=== PATIENT | male | born 1950 | race Caucasian/White ===

== ENCOUNTER 2020-08-13 04:27 | Day surgery (SDC) | payer OTHER, BC ==
[2020-08-12 11:17] VITALS: BMI 27.3
--- NOTE | 2020-08-12 23:34 | PROC ---
Procedure Note Procedure: Pre procedure Diagnosis: Lumbar Radiculopathy Post Procedure Diagnosis: same Anesthesia: Local Procedure Performed: Left L4 and L5 Transforaminal Epidural Steroid Injection The patients blood pressure was elevated. Pt was asymptomatic. Pt missed his scheduled morning dose. The procedure was aborted. Pt instructed to take his medication BRIGITTE. The patient was given a follow up appointment with me in the near future. Moisés Fields DO
--- OUTSIDE RECORDS SUMMARY | 2020-08-13 04:30 | XMS ---
:1950 Author Organization [facility] Care Team Providers Name Role Phone Moisés Fields Unavailable Moisés Fields Unavailable Re-disclosure Warning The records that you are about to access may contain information from federally- assisted alcohol or drug abuse programs. If such information is present, then the following federally mandated warning applies: This information has been disclosed to you from records protected by federal confidentiality rules (42 CFR part 2). The federal rules prohibit you from making any further disclosure of this information unless further disclosure is expressly permitted by the written consent of the person to whom it pertains or as otherwise permitted by 42 CFR part 2. A general authorization for the release of medical or other information is NOT sufficient for this purpose. The Federal rules restrict any use of the information to criminally investigate or prosecute any alcohol or drug abuse patient.The records that you are about to access may contain highly sensitive health information, the redisclosure of which is protected by Article 27-F of the [facility] Public Health law. If you continue you may haveaccess to information: Regarding HIV / AIDS; Provided by facilities licensed or operated by the [facility] Office of Mental Health; or Provided by the [facility] Office for People With Developmental Disabilities. If such information is present, then the following [facility] mandated warning applies: This information has been disclosed to you from confidential records which are protected by state law. State law prohibits you from making any further disclosure of this information without the specific written consent of the person to whom it pertains, or as otherwise permitted by law. Any unauthorized further disclosure in violation of state law may result in a fine or fpc sentence or both. A general authorization for the release of medical or other information is NOT sufficient authorization for further disclosure. Encounters Encounter Providers Location Date Indications Data Source(s ) Attender: Moisés 08/04/2020 [facility] ([facility] 12:00:00 AM EDT [facility] Solano) Office Attender: Moisés Fields 07/06/2020 12:00:00 AM EDT [facility] ([facility] ) Office Insurance Providers Payer name Policy type Policy ID Covered Covered libertarian's Policy P yohannes / Coverage libertarian ID relationship to Johansen Inf ormation type johansen BC PPO [id number] SP [id number] MEDICARE [id number] SP [id number] [place] MED[place] [id number] 1 [id number] PART B DOWNSTATE EMPIRE PLAN [id number] ([facility]) [place] MEDICARE [id number] 1 [id number] PART B DOWNSTATE Problems, Conditions, and Diagnoses Code Display Name Description Problem Type Effective Dates Data Source(s) M54.16 Radiculopathy, RADICULOPATHY, Problem 07/06/2020 [facility] 12:00:00 AM EDT Thomas Solano, KAR) M54.16 Radiculopathy, RADICULOPATHY, Problem 07/06/2020 [facility] ([facility] 12:00:00 AM EDT [facility] Yu) Surgeries/Procedures Procedure Description Date Indications Data Source(s) Documentation of current 08/04/2020 [facility] ([facility] 12:00:00 AM EDT [facility] Carrillo) Documentation of current 08/04/2020 [facility] ([facility]) 12:00:00 AM EDT [facility] Carrillo) Documentation of current 08/04/2020 [facility] ([facility]) 12:00:00 AM EDT [facility] Carrillo) Documentation of current 08/04/2020 [facility] ([facility]) 12:00:00 AM EDT [facility] Carrillo) Documentation of current 08/04/2020 [facility] ([facility]) 12:00:00 AM EDT [facility], ) OFFICE OUTPATIENT VISIT 08/04/2020 [facility] ([facility] 12:00:00 AM [facility], ) Documentation of current 07/06/2020 [facility] ([facility]procedure) 12:00:00 AM EDT [facility], ) Documentation of current 07/06/2020 [facility] ([facility]) 12:00:00 AM EDT [facility], ) Documentation of current 07/06/2020 [facility] ([facility]) 12:00:00 AM EDT [facility], ) OFFICE OUTPATIENT NEW 07/06/2020 [facility] ([facility] 12:00:00 AM T [facility], ) Documentation of current 07/06/2020 [facility] ([facility]procedure) 12:00:00 AM EDT [facility], ) Documentation of current 07/06/2020 [facility] ([facility]procedure) 12:00:00 AM EDT [facility], ) OFFICE OUTPATIENT NEW 07/06/2020 [facility] ([facility] 12:00:00 AM T [facility], ) Results ID Date Data Source [id number] 08/09/2020 12:24:00 PM EDT [facility] Name Value Range Interpretation Description Data Sup porting Code Source(s) Document(s ) SARS [facility] coronavirus 2 RNA This lab was ordered by [facility] and reported by [facility]. Procedure Social History Code Duration Value Status Description Data Source(s ) Smoking 08/05/2020 denies ETOH completed denies ETOH Denies [facility] N ([facility] 12:00:00 AM EDT Denies smoking smoking denies [facility], ) denies illicit illicit drugs drugs Smoking 08/05/2020 Unknown if ever completed Unknown if ever [facility] ([facility] 12:00:00 AM EDT smoked smoked [facility], ) Smoking 07/06/2020 denies ETOH completed denies ETOH Denies [facility] N ([facility] 12:00:00 AM EDT Denies smoking smoking denies [facility], ) denies illicit illicit drugs drugs Smoking 07/06/2020 Unknown if ever completed Unknown if ever [facility] EN ([facility] 12:00:00 AM EDT smoked [facility], ) Vital Signs ID Date Data Source UNK Name Value Range Interpretation Code Description Data Source(s) Heart rate 88 /min 88 /min [facility] ([facility] , ) Respiratory rate 15 /min 15 /min [facility] ( [facility] , ) Inhaled oxygen 98 % 98 % [facility] ([facility], ) Diastolic blood 70 mm[Hg] 70 mm[Hg] [facility] (S t pressure [facility] , ) Systolic blood 125 mm[Hg] 125 mm[Hg] [facility] ([facility] , )
[2020-08-13 07:51] VITALS: BP 164/80; PULSE 92; TEMP 96
== END 2020-08-13 09:55 | disposition home or self-care (01) ==
LOC: JASU-SURG 04:27
PROVIDERS: ATTEND Pain Medicine Pain Medicine
PROC: 3E0R33Z Introduction of Anti-inflammatory into Spinal Canal, Percutaneous Approach (ICD-10-PCS; 2020-08-13)
PROC: 3E0R3BZ Introduction of Anesthetic Agent into Spinal Canal, Percutaneous Approach (ICD-10-PCS; principal; 2020-08-13 09:00)
DX: M54.16 Radiculopathy, lumbar region (principal); M54.5 Low back pain

== ENCOUNTER 2020-08-20 05:26 | Day surgery (SDC) | payer OTHER, BC ==
--- OUTSIDE RECORDS SUMMARY | 2020-08-13 13:14 | XMS ---
:1950 Author Organization [facility] Care Team Providers Name Role [...] is protected by Article 27-F of the [facility] Public Health law. If you continue you may haveaccess to information: Regarding HIV / AIDS; Provided by facilities licensed or operated by the [facility] Office of Mental Health; or Provided by the [facility] Office for People With Developmental Disabilities. If such information is present, then the following [facility] mandated warning applies: This information has been [...] law may result in a fine or shelter sentence or both. A general authorization for [...] name Policy type Policy ID Covered Covered constitution party's Policy P yohannes / Coverage constitution party ID relationship to Johansen Inf ormation type johansen BC PPO [id number] SP [id number] MEDICARE [id number] SP [id number] [place] MEDICARE [id number] 1 [id number] PART B DOWNSTATE EMPIRE PLAN [id number] ([facility]) [place] [id number] 1 [id number] PART B DOWNSTATE Problems, [...] Carrillo) Documentation of current 08/04/2020 [facility] ([facility]) 12:00:00 AM EDT [facility] Carrillo) Documentation of current 08/04/2020 [facility] ([facility]) 12:00:00 AM EDT [facility] Carrillo) Documentation of current 08/04/2020 [facility] ([facility]procedure) 12:00:00 AM EDT [facility], ) OFFICE OUTPATIENT VISIT 08/04/2020 [facility] ([facility] 12:00:00 AM [facility], ) Documentation of current 07/06/2020 [facility] ([facility]procedure) 12:00:00 AM EDT [facility], ) Documentation of current 07/06/2020 [facility] ([facility]procedure) 12:00:00 AM EDT [facility], ) Documentation of current 07/06/2020 [facility] ([facility]) 12:00:00 AM EDT [facility], ) OFFICE OUTPATIENT NEW 07/06/2020 [facility] ([facility] 12:00:00 AM T [facility], ) Documentation of current 07/06/2020 [facility] ([facility] (procedure) 12:00:00 AM EDT [facility], ) Documentation of current 07/06/2020 [facility] ([facility]procedure) 12:00:00 AM EDT [facility], ) OFFICE OUTPATIENT NEW 07/06/2020 [facility] ([facility] 12:00:00 AM T [facility], ) Results ID Date Data Source [id number] 08/09/2020 12:24:00 PM EDT [facility] Name Value [...] 12:00:00 AM EDT Denies smoking smoking denies [facility], ) denies illicit illicit drugs drugs Smoking 08/05/2020 Unknown if ever completed Unknown if ever [facility] ([facility] 12:00:00 AM EDT smoked smoked [facility], ) Smoking 07/06/2020 denies ETOH completed denies ETOH Denies [facility] N ([facility] 12:00:00 AM EDT Denies smoking smoking denies [facility], ) denies illicit illicit drugs drugs Smoking 07/06/2020 Unknown if ever completed Unknown if ever [facility] ([facility] 12:00:00 AM EDT smoked [facility], ) Vital Signs ID Date Data Source UNK Name Value Range Interpretation Code Description Data Source(s) Heart rate 88 /min 88 /min [facility] ([facility] , ) Respiratory rate 15 /min 15 /min [facility] ( [facility] , ) Inhaled oxygen 98 % 98 % [facility] ([facility], ) Diastolic blood 70 mm[Hg] 70 mm[Hg] [facility] (S t pressure [facility] , ) Systolic blood 125 mm[Hg] 125 mm[Hg] [facility] ([facility] , )
[2020-08-19 16:08] VITALS: BMI 27.3
--- NOTE | 2020-08-19 22:04 | PROC ---
Procedure Note Procedure: Pre procedure Diagnosis: Lumbar Radiculopathy Post Procedure Diagnosis: same Anesthesia: Local Procedure Performed: Left L4 and L5 Transforaminal Epidural Steroid Injection After the risks and benefits were explained, informed consent was obtained. The patient was then taken to the procedure room and positioned prone on the procedure table. Time out was performed. The region overlying the left L4 and L5 neural foramens were identified using fluoroscopy. The skin was prepped and draped in the usual sterile fashion. The skin and soft tissues were anesthetized using 1% lidocaine. The neural foramens were identified with the fluoroscopic beam directed in a right oblique direction. 2 22 gauge 3.5 inch spinal needles were then introduced into the appropriate neural foramens using intermittent fluoroscopic guidance using AP, oblique and lateral views as indicated. Needle placement was then confirmed with the injection of Omnipaque 180. Epidural flow was noted and the nerve root was outlined. No vascular uptake was noted. Next, a mixture 1.5 cc of dexamethasone and Normal saline followed by 0.5 cc of 1% lidocaine was then injected around the left L4 and L5 spinal nerves. The patient tolerated the procedure well and there were no complications. The patient was taken to the post procedure recovery area in good condition. Vital signs remained stable before, during, and after the procedure. The patient was given oral and written follow-up instructions. The patient was given a follow up appointment with me in the near future. Moisés Fields DO
--- OUTSIDE RECORDS SUMMARY | 2020-08-20 05:32 | XMS ---
:1950 Author [facility] Care Team Providers Name Role Phone [...] is protected by Article 27-F of the [facility] Public Health law. If you continue you may haveaccess to information: Regarding HIV / AIDS; Provided by facilities licensed or operated by the [facility] Office of Mental Health; or Provided by the [facility] Office for People With Developmental Disabilities. If such information is present, then the following [facility] mandated warning applies: This information [...] law may result in a fine or assisted sentence or both. A general authorization for the release of medical or other information is NOT sufficient authorization for further disclosure. Encounters Encounter Providers Location Date Indications Data Source(s ) Attender: Moisés 08/04/2020 [facility] ([facility] 12:00:00 AM K[facility] Mendez) Office Attender: Moisés Fields 07/06/2020 12:00:00 AM EDT [facility] ([facility] ) Office Insurance Providers Payer name Policy type Policy ID Covered Covered republican's Policy P yohannes / Coverage republican ID relationship to Johansen Inf ormation type johansen BC PPO [id number] SP [id number] MEDICARE [id number] SP [id number] PPO [id number] SP [id number] [place] [id number] 1 [id number] PART B DOWNSTATE EMPIRE PLAN [id number] ([facility]) [place] MEDICARE [id number] 1 [id number] PART B DOWNSTATE Problems, Conditions, and Diagnoses Code Display Name Description Problem Type Effective Dates Data Source(s) M54.16 Radiculopathy, RADICULOPATHY, Problem 07/06/2020 [facility] ([facility] 12:00:00 AM EDT [facility], ) M54.16 Radiculopathy, RADICULOPATHY, Problem 07/06/2020 [facility] ([facility] 12:00:00 AM EDT [facility] ) Surgeries/Procedures Procedure Description Date Indications Data Source(s) Documentation of current 08/04/2020 [facility] ([facility] (procedure) 12:00:00 AM EDT [facility] Carrillo) Documentation of current 08/04/2020 [facility] ([facility] (procedure) 12:00:00 AM EDT [facility] Carrillo) Documentation of current 08/04/2020 [facility] ([facility] (procedure) 12:00:00 AM EDT K[facility] Carrillo) Documentation of current 08/04/2020 [facility] ([facility] (procedure) 12:00:00 AM EDT [facility], ) Documentation of current 08/04/2020 [facility] ([facility] (procedure) 12:00:00 AM EDT [facility], ) OFFICE OUTPATIENT VISIT 08/04/2020 [facility] ([facility] 12:00:00 AM T [facility], ) Documentation of current 07/06/2020 [facility] ([facility] (procedure) 12:00:00 AM EDT [facility], ) Documentation of current 07/06/2020 [facility] ([facility] (procedure) 12:00:00 AM EDT [facility], ) Documentation of current 07/06/2020 [facility] ([facility] (procedure) 12:00:00 AM EDT [facility], ) OFFICE OUTPATIENT NEW 07/06/2020 [facility] ([facility] 12:00:00 AM T [facility], ) Documentation of current 07/06/2020 [facility] ([facility] (procedure) 12:00:00 AM EDT [facility], ) Documentation of current 07/06/2020 [facility] ([facility] (procedure) 12:00:00 AM EDT [facility], ) OFFICE OUTPATIENT NEW 07/06/2020 [facility] ([facility] 12:00:00 AM T [facility], ) Results ID Date Data Source [id number] 08/15/2020 10:45:00 AM EDT [facility] Name Value Range Interpretation Description Data Sup porting Code Source(s) Document(s ) SARS [facility] coronavirus 2 RNA This lab was ordered by [facility] and reported by [facility]. ID Date Data Source [id number] 08/09/2020 12:24:00 PM EDT [facility] Name Value Range Interpretation Description Data Sup porting Code Source(s) Document(s ) SARS [facility] coronavirus 2 RNA This lab was ordered by [facility] and reported by [facility]. Procedure Social History Code Duration Value Status Description Data Source(s ) Smoking 08/05/2020 denies ETOH completed denies ETOH Denies [facility] N ([facility] 12:00:00 AM EDT Denies smoking smoking denies [facility], ) denies illicit illicit drugs drugs Smoking 08/05/2020 Unknown if ever completed Unknown if ever [facility] EN ([facility] 12:00:00 AM EDT smoked smoked [facility], ) Smoking 07/06/2020 denies ETOH completed denies ETOH Denies [facility] N ([facility] 12:00:00 AM EDT Denies smoking [facility], ) denies illicit illicit drugs drugs Smoking 07/06/2020 Unknown if ever completed Unknown if ever [facility] EN ([facility] 12:00:00 AM EDT smoked smoked [facility], ) Vital Signs ID Date Data Source UNK Name Value Range Interpretation Code Description Data Source(s) Heart rate 88 /min 88 /min [facility] ([facility] , ) Respiratory rate 15 /min 15 /min [facility] ( [facility]) Inhaled oxygen 98 % 98 % [facility] ([facility], ) Diastolic blood 70 mm[Hg] 70 mm[Hg] [facility] ([facility] , ) Systolic blood 125 mm[Hg] 125 mm[Hg] [facility] ([facility] , )
[2020-08-20] MEDS ORDERED: LIDOCAINE HCL 1% PRESERVATIVE FREE - 30ML VIAL IJ ONE ×2 (11:41)
[2020-08-20] MEDS ORDERED: IOHEXOL 180 MG/1 ML ML IJ ONE (11:42)
[2020-08-20 13:41] VITALS: PULSE 80; TEMP 98.2
[2020-08-20 14:08] VITALS: BP 130/70
== END 2020-08-20 12:30 | disposition home or self-care (01) ==
LOC: JASU-SURG 05:26
PROVIDERS: ATTEND Pain Medicine Pain Medicine
PROC: 3E0R33Z Introduction of Anti-inflammatory into Spinal Canal, Percutaneous Approach (ICD-10-PCS; principal; 2020-08-20 11:30)
DX: M54.16 Radiculopathy, lumbar region (principal)
CPT/HCPCS: 76000-TC-FY

== ENCOUNTER 2020-11-12 04:32 | Day surgery (SDC) | payer OTHER, BC ==
[2020-11-08 15:41] VITALS: BMI 27.3
[2020-11-12] MEDS ORDERED: DEXAMETHASONE SOD PHOSPHATE/PF 10 MG/ML SDV ONE (10:42)
[2020-11-12] MEDS ORDERED: LIDOCAINE HCL/PF 1% SDV 5ML VIAL ONE ×2 (10:42→10:53)
[2020-11-12] MEDS ORDERED: DEXAMETHASONE SOD PHOSPHATE 4 MG/1 ML VIAL ONE (10:44)
[2020-11-12] MEDS ORDERED: LIDOCAINE HCL 1% PRESERVATIVE FREE - 30ML VIAL INF ONE (11:20)
[2020-11-12] MEDS ORDERED: BUPIVACAINE HCL/PF 0.75% 10 ML VIAL CAUD ONE (11:21)
[2020-11-12] MEDS ORDERED: IOHEXOL 180 MG/1 ML ML IT ONE (11:23)
[2020-11-12 11:50] VITALS: TEMP 97.5
[2020-11-12 12:19] VITALS: BP 120/60; PULSE 80
== END 2020-11-12 12:05 | disposition home or self-care (01) ==
LOC: JASU-SURG 04:32
PROVIDERS: ATTEND Pain Medicine Pain Medicine
PROC: 3E0T33Z Introduction of Anti-inflammatory into Peripheral Nerves and Plexi, Percutaneous Approach (ICD-10-PCS; 2020-11-12)
PROC: 3E0T3BZ Introduction of Anesthetic Agent into Peripheral Nerves and Plexi, Percutaneous Approach (ICD-10-PCS; principal; 2020-11-12 12:30)
DX: M47.816 Spondylosis without myelopathy or radiculopathy, lumbar region (principal)
CPT/HCPCS: 76000-TC-FY

== ENCOUNTER 2021-05-20 05:11 | Day surgery (SDC) | payer OTHER, BC ==
[2021-05-18 15:54] VITALS: BMI 27.3
[2021-05-20] MEDS ORDERED: BUPIVACAINE HCL/PF 0.75% 10 ML VIAL ONE (07:28)
[2021-05-20] MEDS ORDERED: LIDOCAINE HCL/PF 1% SDV 5ML VIAL ONE (07:28)
[2021-05-20 09:39] VITALS: PULSE 76
[2021-05-20] MEDS ORDERED: LIDOCAINE HCL 1% PRESERVATIVE FREE - 30ML VIAL IJ ONE (11:59)
[2021-05-20] MEDS ORDERED: IOHEXOL 180 MG/1 ML ML IJ ONE (12:02)
[2021-05-20] MEDS ORDERED: BUPIVACAINE HCL/PF 0.75% 10 ML VIAL NR ONE (12:04)
[2021-05-20 13:19] VITALS: BP 135/78; TEMP 98
== END 2021-05-20 12:40 | disposition home or self-care (01) ==
LOC: JASU-SURG 05:11
PROVIDERS: ATTEND Pain Medicine Pain Medicine
PROC: BR16YZZ Fluoroscopy of Lumbar Facet Joint(s) using Other Contrast (ICD-10-PCS; 2021-05-20)
PROC: 3E0T3BZ Introduction of Anesthetic Agent into Peripheral Nerves and Plexi, Percutaneous Approach (ICD-10-PCS; principal; 2021-05-20 11:00)
DX: M47.816 Spondylosis without myelopathy or radiculopathy, lumbar region (principal)
CPT/HCPCS: 76000-TC-FY

== ENCOUNTER 2021-06-24 04:27 | Day surgery (SDC) | payer OTHER, BC ==
[2021-06-23 14:29] VITALS: BMI 27.3
[2021-06-24] MEDS ORDERED: BUPIVACAINE HCL/PF 0.75% 10 ML VIAL ONE (07:31)
[2021-06-24] MEDS ORDERED: LIDOCAINE HCL/PF 1% SDV 5ML VIAL ONE (07:31)
[2021-06-24] MEDS ORDERED: DEXAMETHASONE SOD PHOSPHATE 10 MG/1 ML VIAL ONE (07:53)
[2021-06-24] MEDS ORDERED: LIDOCAINE HCL/PF 2% SDV 5ML VIAL INF ONE ×2 (11:37)
[2021-06-24] MEDS ORDERED: LIDOCAINE 1% P/F 10 MG/ML VIAL INF ONE ×2 (11:38)
[2021-06-24] MEDS ORDERED: BUPIVACAINE HCL/PF 0.75% 10 ML VIAL NR ONE ×2 (11:39)
[2021-06-24] MEDS ORDERED: IOHEXOL 180 MG/1 ML ML IJ ONE (11:39)
[2021-06-24] MEDS ORDERED: DEXAMETHASONE SOD PHOSPHATE 10 MG/1 ML VIAL IVPUSH ONE (11:40)
[2021-06-24 12:17] VITALS: BP 134/78; PULSE 80; TEMP 98.4
== END 2021-06-24 12:18 | disposition home or self-care (01) ==
LOC: JASU-SURG 04:27
PROVIDERS: ATTEND Pain Medicine Pain Medicine
PROC: 3E0T3TZ Introduction of Destructive Agent into Peripheral Nerves and Plexi, Percutaneous Approach (ICD-10-PCS; principal; 2021-06-24 11:15)
PROC: BR16YZZ Fluoroscopy of Lumbar Facet Joint(s) using Other Contrast (ICD-10-PCS; 2021-06-24 11:15)
DX: M47.816 Spondylosis without myelopathy or radiculopathy, lumbar region (principal)
CPT/HCPCS: 76000-TC-FY; J1100

== ENCOUNTER 2021-07-19 04:40 | Day surgery (SDC) | payer OTHER, BC ==
[2021-07-14 09:18] VITALS: BMI 27.3
[2021-07-19] MEDS ORDERED: DEXAMETHASONE SOD PHOSPHATE 10 MG/1 ML VIAL ONE (09:35)
[2021-07-19] MEDS ORDERED: BUPIVACAINE HCL/PF 0.75% 10 ML VIAL ONE (09:35)
[2021-07-19] MEDS ORDERED: LIDOCAINE HCL/PF 1% SDV 5ML VIAL ONE (09:35)
[2021-07-19] MEDS ORDERED: LIDOCAINE HCL/PF 2% SDV 5ML VIAL ONE (10:31)
[2021-07-19] MEDS ORDERED: LIDOCAINE HCL 1% PRESERVATIVE FREE - 30ML VIAL IJ ONE (11:13)
[2021-07-19] MEDS ORDERED: DEXAMETHASONE SOD PHOSPHATE 10 MG/1 ML VIAL IM ONE (11:13)
[2021-07-19] MEDS ORDERED: LIDOCAINE HCL/PF 2% SDV 5ML VIAL INF ONE (11:13)
[2021-07-19] MEDS ORDERED: IOHEXOL 180 MG/1 ML ML IJ ONE (11:13)
[2021-07-19] MEDS ORDERED: BUPIVACAINE HCL/PF 0.75% 10 ML VIAL NR ONE (11:13)
[2021-07-19 12:04] VITALS: BP 165/81; PULSE 77; TEMP 98.6
== END 2021-07-19 13:31 | disposition home or self-care (01) ==
LOC: JASU-SURG 04:40
PROVIDERS: ATTEND Pain Medicine Pain Medicine
PROC: 3E0T3TZ Introduction of Destructive Agent into Peripheral Nerves and Plexi, Percutaneous Approach (ICD-10-PCS; principal; 2021-07-19 09:30)
DX: M47.816 Spondylosis without myelopathy or radiculopathy, lumbar region (principal)
CPT/HCPCS: 76000-TC-FY; J1100

== ENCOUNTER 2021-09-18 22:58 | Emergency (ER) | payer OTHER, BC ==
[2021-09-18 23:02] VITALS: BP 171/78; TEMP 100; BMI 26.6
[2021-09-19] MEDS ORDERED: ALPRAZolam 1 MG TABLET PO PRN (00:43)
[2021-09-19] MEDS ORDERED: ACETAMINOPHEN 500 MG TABLET (FP) PO ONE (01:08)
[2021-09-19] MEDS ORDERED: ACETAMINOPHEN 325 MG TABLET (FP) ONE (01:26)
[2021-09-19] MEDS ORDERED: ALPRAZolam 0.25 MG TABLET ONE (01:26)
[2021-09-19] MEDS ORDERED: ALPRAZolam 1 MG TABLET PO ONE (01:34)
[2021-09-19 02:53] VITALS: PULSE 93
== END 2021-09-19 03:11 | disposition home or self-care (01) ==
LOC: JER 22:58
DX: J06.9 Acute upper respiratory infection, unspecified (principal)
CPT/HCPCS: 71046-TC-FY; 99284-25; C9803; U0003; U0005

== ENCOUNTER 2022-05-30 04:36 | Day surgery (SDC) | payer OTHER, BC ==
[2022-05-26 15:45] VITALS: BMI 27.3
[2022-05-30] MEDS ORDERED: LIDOCAINE HCL/PF 1% SDV 5ML VIAL ONE (07:26)
[2022-05-30] MEDS ORDERED: DEXAMETHASONE SOD PHOSPHATE 10 MG/1 ML VIAL ONE (07:26)
[2022-05-30] MEDS ORDERED: BUPIVACAINE HCL/PF 0.75% 10 ML VIAL ONE (07:26)
[2022-05-30 09:28] VITALS: RESP 20
[2022-05-30] MEDS ORDERED: LIDOCAINE HCL/PF 2% SDV 5ML VIAL ONE (11:46)
[2022-05-30] MEDS ORDERED: LIDOCAINE HCL 1% PRESERVATIVE FREE - 30ML VIAL IJ ONE (11:50)
[2022-05-30] MEDS ORDERED: LIDOCAINE HCL/PF 2% SDV 5ML VIAL PNB ONE (11:50)
[2022-05-30] MEDS ORDERED: DEXAMETHASONE SOD PHOSPHATE 10 MG/1 ML VIAL IVPUSH ONE (11:52)
[2022-05-30] MEDS ORDERED: BUPIVACAINE HCL/PF 0.75% 10 ML VIAL NR ONE (11:52)
[2022-05-30 13:31] VITALS: BP 130/80; PULSE 74; TEMP 98
== END 2022-05-30 13:20 | disposition home or self-care (01) ==
LOC: JASU-SURG 04:36
PROVIDERS: ATTEND Pain Medicine Pain Medicine
PROC: BR16YZZ Fluoroscopy of Lumbar Facet Joint(s) using Other Contrast (ICD-10-PCS; 2022-05-30)
PROC: 3E0T3TZ Introduction of Destructive Agent into Peripheral Nerves and Plexi, Percutaneous Approach (ICD-10-PCS; principal; 2022-05-30 10:15)
DX: M47.816 Spondylosis without myelopathy or radiculopathy, lumbar region (principal)
CPT/HCPCS: 76000-TC-FY; J1100

== ENCOUNTER 2022-07-04 04:18 | Day surgery (SDC) | payer OTHER, BC ==
[2022-07-03 17:55] VITALS: BMI 26.6
[2022-07-04] MEDS ORDERED: LIDOCAINE HCL/PF 1% SDV 5ML VIAL ONE (07:11)
[2022-07-04] MEDS ORDERED: BUPIVACAINE HCL/PF 0.75% 10 ML VIAL ONE (07:12)
[2022-07-04] MEDS ORDERED: LIDOCAINE HCL 1% PRESERVATIVE FREE - 30ML VIAL IJ ONE (10:32)
[2022-07-04] MEDS ORDERED: LIDOCAINE HCL/PF 2% SDV 5ML VIAL PNB ONE ×2 (10:32→10:46)
[2022-07-04] MEDS ORDERED: DEXAMETHASONE SOD PHOSPHATE 10 MG/1 ML VIAL IVPUSH ONE (10:33)
[2022-07-04] MEDS ORDERED: BUPIVACAINE HCL/PF 0.75% 10 ML VIAL NR ONE (10:34)
[2022-07-04 13:34] VITALS: BP 135/74; PULSE 74; RESP 18; TEMP 98.9
== END 2022-07-04 11:40 | disposition home or self-care (01) ==
LOC: JASU-SURG 04:18
PROVIDERS: ATTEND Pain Medicine Pain Medicine
PROC: 3E0T3TZ Introduction of Destructive Agent into Peripheral Nerves and Plexi, Percutaneous Approach (ICD-10-PCS; principal; 2022-07-04 10:00)
DX: M47.816 Spondylosis without myelopathy or radiculopathy, lumbar region (principal)
CPT/HCPCS: 76000-TC-FY; J1100

== ENCOUNTER 2023-10-09 04:10 | Day surgery (SDC) | payer OTHER, BC ==
[2023-10-05 17:20] VITALS: BMI 26.6
[2023-10-09] MEDS ORDERED: ACETAMINOPHEN 500 MG TABLET (FP) PO PRN (09:09)
[2023-10-09] MEDS ORDERED: LIDOCAINE 1% P/F 10 MG/ML VIAL INF ONE (12:14)
[2023-10-09] MEDS ORDERED: IOHEXOL 180 MG/1 ML ML IJ ONE (12:17)
[2023-10-09] MEDS ORDERED: DEXAMETHASONE SOD PHOSPHATE 10 MG/1 ML VIAL IVPUSH ONE (12:18)
[2023-10-09 12:40] VITALS: RESP 20
[2023-10-09 13:32] VITALS: BP 135/75; PULSE 78; TEMP 97.9
== END 2023-10-09 13:20 | disposition home or self-care (01) ==
LOC: JASU-SURG 04:10
PROVIDERS: ATTEND Pain Medicine Pain Medicine
PROC: 3E0R3BZ Introduction of Anesthetic Agent into Spinal Canal, Percutaneous Approach (ICD-10-PCS; 2023-10-09)
PROC: 3E0R33Z Introduction of Anti-inflammatory into Spinal Canal, Percutaneous Approach (ICD-10-PCS; principal; 2023-10-09 11:45)
DX: M54.16 Radiculopathy, lumbar region (principal)
CPT/HCPCS: 76000-TC-FY; J1100

== ENCOUNTER 2024-02-09 02:44 | Inpatient (IN) | payer OTHER, BC ==
[2024-02-09 02:51] VITALS: BMI 25.9
[2024-02-09] MEDS ORDERED: ACETAMINOPHEN INJECTION 100 ML IVPB ONE (03:43)
[2024-02-09] MEDS: ACETAMINOPHEN 1000 MG/100 ML BAG IVPB ONE (04:04)
[2024-02-09 04:15] LABS: BASO % 0.6 % (0-2.0); HEMATOCRIT 35.4 % (35.4-49); HEMOGLOBIN 11.8 GM/dL (11.7-16.9); MCH 27.9 pg (25.7-33.7); MCHC 33.3 g/dl (32.0-35.9); MEAN CELL VOLUME 83.7 fl (80-96); MEAN PLT VOLUME 6.8 fl (7.5-11.1); MONO % 6.9 % (3.8-10.2); NEUT % 80.5 % (42.8-82.8); PLATELET COUNT 252 10^3/uL (134-434); RBC 4.23 M/mm3 (4.00-5.60); RDW 14.9 % (11.9-15.9); WHITE BLOOD COUNT 9.2 K/mm3 (4.0-10.0)
[2024-02-09 04:43] LABS: POTASSIUM 4.6 mmol/L (3.5-5.1)
[2024-02-09 04:45] LABS: CALCIUM 9.6 mg/dL (8.5-10.1)
[2024-02-09 04:46] LABS: ALBUMIN 3.6 g/dl (3.4-5.0)
[2024-02-09 04:50] LABS: BILIRUBIN,TOTAL 0.3 mg/dL (0.2-1); TOT PROT 7.1 g/dl (6.4-8.2)
[2024-02-09 07:46] LABS: EPI CELLS 4 /uL (0-25.1); HYALINE CASTS 0 /uL (0-3.1); URINE APPEARANCE CLEAR; URINE BACTERIA 4 /uL (0-1359); URINE BILIRUBIN NEGATIVE (NEGATIVE); URINE COLOR YELLOW; URINE GLUCOSE (UA) 3+ (NEGATIVE); URINE KETONE NEGATIVE (NEGATIVE); URINE LEUK ESTERASE NEGATIVE (NEGATIVE); URINE NITRITE NEGATIVE (NEGATIVE); URINE PROTEIN 1+ (NEGATIVE); URINE RBC 13 /uL (0-23.9); URINE UROBILINOGEN 0.2 mg/dL (0.2-1.0); URINE WBC 2 /uL (0-25.8)
[2024-02-09] MEDS ORDERED: PIPERACILLIN/TAZOB 4.5 GM 4.5 GM/100 ML BAG IVPB ONE (09:32)
[2024-02-09] MEDS: PIPERACILLIN/TAZOB 4.5 GM 4.5 GM in DEXTROSE 5%-WATER 100 ML IVPB ONE (09:51)
[2024-02-09] MEDS ORDERED: IOHEXOL (OMNIPAQUE PO) 12 MG/ML - 500 ML BOTTLE PO ONE (10:56)
[2024-02-09 12:42] LABS: INR 1.23 (0.83-1.09); PROTHROMBIN TIME (PATIENT) 14.2 SEC (9.7-13.0)
[2024-02-09 12:45] LABS: ACTIVATED PTT 34.3 SECONDS (25.2-36.5)
[2024-02-09] MEDS ORDERED: ONDANSETRON 4 MG/2 ML VIAL IVPUSH PRN (14:56)
[2024-02-09] MEDS ORDERED: PIPERACILLIN/TAZOB 3.375 GM 3.375 GM in DEXTROSE 5%-WATER - 50 ML IVPB SCH (15:00)
[2024-02-09] MEDS: ACETAMINOPHEN 1000 MG/100 ML BAG IVPB PRN (16:45)
[2024-02-09] MEDS: DEXTROSE 5%-0.45% SALINE 1,000 ML IV SCH (16:45)
[2024-02-09] MEDS: INSULIN ASPART SLIDING SCALE (NOVOLOG) 1 VIAL SQ SCH (16:45)
[2024-02-09] MEDS: amLODIPine BESYLATE 5 MG TABLET (FP) PO SCH (16:46)
[2024-02-09] MEDS: PANTOPRAZOLE SODIUM 40 MG VIAL IVPUSH SCH (16:46)
[2024-02-09] MEDS: PIPERACILLIN/TAZOB 3.375 GM 3.375 GM in DEXTROSE 5%-WATER - 50 ML IVPB SCH (17:03)
[2024-02-09] MEDS: NEBIVOLOL 10 MG TABLET (FP) PO SCH (17:22)
[2024-02-09] MEDS: TAMSULOSIN HCL 0.4 MG CAP PO SCH (22:26)
[2024-02-09] MEDS: ROSUVASTATIN CA 20 MG TABLET PO SCH (22:27)
[2024-02-10 08:56] LABS: BASO % 0.3 % (0-2.0); EOS % 1.7 % (0-4.5); HEMOGLOBIN 10.9 GM/dL (11.7-16.9); LYMPH % 13.6 % (8-40); MCH 27.1 pg (25.7-33.7); MCHC 32.2 g/dl (32.0-35.9); MEAN CELL VOLUME 84.1 fl (80-96); MEAN PLT VOLUME 6.9 fl (7.5-11.1); NEUT % 77.4 % (42.8-82.8); PLATELET COUNT 264 10^3/uL (134-434); RBC 4.04 M/mm3 (4.00-5.60); RDW 14.5 % (11.9-15.9); WHITE BLOOD COUNT 6.9 K/mm3 (4.0-10.0)
[2024-02-10 09:13] LABS: POTASSIUM 4.4 mmol/L (3.5-5.1)
[2024-02-10 09:21] LABS: CALCIUM 8.9 mg/dL (8.5-10.1)
[2024-02-10 09:22] LABS: BLOOD UREA NITROGEN 14.6 mg/dL (7-18)
[2024-02-10 09:25] LABS: CREATININE 0.9 mg/dL (0.55-1.3)
[2024-02-10 09:26] LABS: BILIRUBIN,TOTAL 0.5 mg/dL (0.2-1); TOT PROT 6.4 g/dl (6.4-8.2)
[2024-02-10] MEDS: ENOXAPARIN NA (PORCINE) 40 MG/0.4 ML DISP.SYRIN SQ SCH (09:34)
[2024-02-10] MEDS: KETOROLAC TROMETHAMINE 30 MG/1 ML VIAL IVPUSH PRN (11:49)
[2024-02-11 08:30] LABS: BASO % 0.5 % (0-2.0); EOS % 2.6 % (0-4.5); HEMATOCRIT 33.5 % (35.4-49); HEMOGLOBIN 10.9 GM/dL (11.7-16.9); LYMPH % 17.8 % (8-40); MCH 27.3 pg (25.7-33.7); MCHC 32.6 g/dl (32.0-35.9); MEAN CELL VOLUME 83.7 fl (80-96); MEAN PLT VOLUME 6.6 fl (7.5-11.1); MONO % 6.6 % (3.8-10.2); NEUT % 72.5 % (42.8-82.8); PLATELET COUNT 258 10^3/uL (134-434); RDW 14.4 % (11.9-15.9); WHITE BLOOD COUNT 5.6 K/mm3 (4.0-10.0)
[2024-02-11 09:16] LABS: BILIRUBIN,TOTAL 0.3 mg/dL (0.2-1); BLOOD UREA NITROGEN 21.1 mg/dL (7-18); CALCIUM 8.9 mg/dL (8.5-10.1); CREATININE 0.9 mg/dL (0.55-1.3); POTASSIUM 4.3 mmol/L (3.5-5.1); TOT PROT 6.3 g/dl (6.4-8.2)
[2024-02-11] MEDS: DEXTROSE 5%-0.45% SALINE 1,000 ML IV SCH (13:53)
[2024-02-11] MEDS: CEFTRIAXONE 1 GM in DEXTROSE 5%-WATER - 50 ML IVPB SCH ×2 (16:56)
[2024-02-12 06:20] VITALS: PULSE 79
[2024-02-12 08:39] LABS: HEMATOCRIT 33.1 % (35.4-49); HEMOGLOBIN 10.9 GM/dL (11.7-16.9); MCH 27.6 pg (25.7-33.7); MCHC 33.1 g/dl (32.0-35.9); MEAN CELL VOLUME 83.4 fl (80-96); MEAN PLT VOLUME 6.5 fl (7.5-11.1); PLATELET COUNT 280 10^3/uL (134-434); RBC 3.97 M/mm3 (4.00-5.60); WHITE BLOOD COUNT 5.9 K/mm3 (4.0-10.0)
[2024-02-12 08:58] VITALS: BP 141/74; RESP 19; TEMP 97.9
[2024-02-12 09:34] LABS: ALBUMIN 2.9 g/dl (3.4-5.0); BLOOD UREA NITROGEN 12.9 mg/dL (7-18); CALCIUM 8.8 mg/dL (8.5-10.1); POTASSIUM 4.3 mmol/L (3.5-5.1)
[2024-02-12 09:35] LABS: BILIRUBIN,TOTAL 0.2 mg/dL (0.2-1); CREATININE 0.8 mg/dL (0.55-1.3); TOT PROT 6.2 g/dl (6.4-8.2)
[2024-02-12] MEDS: PANTOPRAZOLE 40 MG TABLET PO SCH (09:46)
== END 2024-02-12 14:43 | disposition home or self-care (01) | DRG 392 ==
LOC: JER 02:44 → JERBED 09:59 → J5S 12:42 → OBSVTOIN 14:54
PROVIDERS: ADMIT Internal Medicine; ATTEND Internal Medicine
DX: K57.92 Diverticulitis of intestine, part unspecified, without perforation or abscess without bleeding (principal); K55.9 Vascular disorder of intestine, unspecified; I10 Essential (primary) hypertension; E78.5 Hyperlipidemia, unspecified; E11.9 Type 2 diabetes mellitus without complications; N40.0 Benign prostatic hyperplasia without lower urinary tract symptoms; M79.18 Myalgia, other site; K57.90 Diverticulosis of intestine, part unspecified, without perforation or abscess without bleeding; K64.8 Other hemorrhoids; K80.20 Calculus of gallbladder without cholecystitis without obstruction
CPT/HCPCS: 36415; 74176-TC; 74177-TC; 80053; 81003; 82962; 85025; 85027; 85610; 85730; 86140; 86850; 86900; 86901; 87086; 93005; 93010; 99285-25; G0378; J0131; Q9967